=== PATIENT | female | born 1975 | race Two or more races ===

== ENCOUNTER 2017-03-05 17:06 | Emergency (ER) | payer SELFPAY ==
[~2017-03-05] VITALS: Ht 167.6 cm; Wt 99.8 kg
[2017-03-05] MEDS ORDERED: HYDROcodone-ACET 7.5/325MG TAB PO ONE (17:30)
[2017-03-05] MEDS ORDERED: HYDROmorphone HCL 2 MG/ML VL IM ONE (18:30)
[2017-03-05] MEDS ORDERED: LIDOCAINE 1% HCL (LOCAL ANESTH.) INJ 20ML MDV IN ONE (18:45)
[2017-03-05] MEDS ORDERED: TETANUS-DIPTH-ACEL PERTUSSIS 0.5ML SYRG IM ONE (20:15)
[2017-03-05 20:49] VITALS: BP 109/58
[2017-03-05] MEDS ORDERED: BACITRACIN-POLYMYXIN B TOPICAL OINT UD TOP ONE (20:56)
[2017-03-05] MEDS ORDERED: BACITRACIN TOP OINT 1 UD PKG TOP ONE (21:00)
== END 2017-03-05 20:48 | disposition home or self-care (01) ==
LOC: ER 17:15
DX: S61.211A Laceration without foreign body of left index finger without damage to nail, initial encounter (principal); W26.8XXA Contact with other sharp object(s), not elsewhere classified, initial encounter; Y93.89 Activity, other specified; Y99.8 Other external cause status; Y92.89 Other specified places as the place of occurrence of the external cause
CPT/HCPCS: 12031; 90471; 90715; 96372; 99284; J1170; J2001; 10120